=== PATIENT | female | born 1975 | race Caucasian/White ===

== ENCOUNTER → 2017-06-25 | Outpatient (CLI) | payer MEDICAID ==
[~2017-06-25] MED LIST: AMITRIPTYLINE100 M1 PO; AMLODIPINE BESY10 M1 PO; ASPIRIN 81MG TA81 MG PO; ATIVAN1 MG PO; CLONIDINE 0.2M0.2 MG PO; DIAZEPAM2 M1 PO; DICLOFENAC 50MG50 MG PO; FIORICET 325 MG1 TAB PO; FIORICET1 CAP PO; GABAPENTIN300 M1 PO; HYDROCODON-ACETAMINO OR; HYDROCODONE1 TABLET PO; LOPRESSOR 50 MG50 MG PO; LORTAB 10/3251 TAB PO; LOSARTAN POTAS100 MG PO; MELOXICAM15 MG PO; METFORMIN 500M500 M1 PO; NORCO 325 MG-51 TAB PO; OXAPROZIN600 MG OR; PERCOGESIC1 TAB PO; SIMVASTATIN40 MG PO; TIZANIDINE HCL 44 MG NG; TRAZODONE50 MG PO; ULTRAM50 MG PO; VALSARTAN80 MG PO; VOLTAREN75 MG PO
[2017-06-25 18:29] LABS: HEMOGLOBIN 11.6 g/dL (12.2-16.2); LYMPH # 2.3 K/mm3 (0.7-4.5); LYMPH % 35.2 % (10-50.0)
[2017-06-25 18:54] LABS: BUN 17 mg/dL (7-18)
[2017-06-25 18:55] LABS: GFR (ESTIMATED) 61 ML/MIN (59-)
== END ==
LOC: LAB 17:54
PROVIDERS: Nurse Practitioner Family
DX: R53.83 Other fatigue (principal)

== ENCOUNTER 2017-09-16 19:00 | Emergency (ER) | payer MEDICAID ==
[~2017-09-16] VITALS: Ht 170.2 cm; Wt 113.4 kg
--- OUTSIDE RECORDS SUMMARY | 2017-09-16 19:25 | External Medical Summary Rpt ---
Author Author ALEJANDRO Granados, [employer] Organization [employer] Address Unknown Phone Unavailable
--- OUTSIDE RECORDS SUMMARY | 2017-09-16 19:25 | External Medical Summary Rpt | CCD ---
Demographics Preferred Language Iraqi Marital Status Unknown Tenriism Affiliation Unknown Race Unknown Ethnic Group Unknown Author Author , ALEJANDRO ALLEN Address Unknown Phone Immunization Unable to retrieve immunization data due to connection failure with Immunization Registry. Please try again later.
--- OUTSIDE RECORDS SUMMARY | 2017-09-16 19:25 | External Medical Summary Rpt | CCD ---
Author Author ALEJANDRO Address Unknown Phone [email or web address] Purpose Continuity of Care Document - through 2016
--- OUTSIDE RECORDS SUMMARY | 2017-09-16 19:25 | External Medical Summary Rpt | CCD ---
Demographics Preferred Language Citizen Of [place] Marital Status Unknown Anabaptist Affiliation Unknown Race Unknown Ethnic Group Unknown Author Author , ALEJANDRO ALLEN Address Unknown Phone Immunization Unable to retrieve immunization data due to connection failure with Immunization Registry. Please try again later.
--- OUTSIDE RECORDS SUMMARY | 2017-09-16 19:25 | External Medical Summary Rpt | CCD ---
Author Author ALEJANDRO Address Unknown Phone Purpose Continuity of Care Document - through 2016
[2017-09-16] MEDS ORDERED: KEFLEX 500MG.500 MG PO (20:18)
--- NOTE | 2017-09-16 20:19 | Urgent Treatment Center Report ---
History of Present Issue Date/Time Seen by Provider 09/16/172003 Visit Reason Pt arrived:Walked Presenting Problem:PT STATES HER BOG TOE ON HER RIGHT FOOT IS INFECTED Location if Accident: Onset of symptoms date/time:/ or onset unknown for:MEDICAL HX UNKNOWN Have you (or family members/close friends) recently traveled outside the [place]? N If Yes, where/when: Have you had exposure to infectious disease within the past month? TB? Other? Specify: Patient states that she noticed that her left great toe had some redness around her toe nail States that it was a little swollen yesterday and began hurting last night State that she looked at it and it looked a little red and looked swollen and infected State that she knew she needed to come in and get on antibiotics before it got real bad ALLERGIES Coded Allergies: Sulfa (Sulfonamide Antibiotics) (Mild, 03/15/17) sumatriptan (From IMITREX) (Mild, 03/15/17) ketorolac (From TORADOL) (03/15/17) tramadol (03/15/17) Uncoded Allergies: STEROIDS (Mild, 01/11/14) Home Medications Reported Medications ASPIRIN (Aspirin) 81 MG PO DAILY TIZANIDINE HCL (Tizanidine Hcl 4 Mg Tablet) 4 MG NG QID Dfkejsbdqdyay-Dreq-Jysudwwmxh (Fioricet ([id number])) 1-2 TAB PO Q6HP PRN MIGRAINE Gabapentin 600 MG PO DAILY #90 Diazepam 2 MG PO DAILY #45 Metformin HCl (Metformin) 500 MG PO BID #90 Valsartan 80 MG PO DAILY #30 Oxaprozin 600 MG OR TID PRN anti-inflammatory #60 Trazodone Hcl (Trazodone HCl) 50 MG PO NIGHTLY #30 Metoprolol Tartrate (Lopressor) 50 MG PO BID #60 Simvastatin (Simvastatin 40MG Tab) 40 MG PO DAILY #30 History Medical History General CAD? No Angina: No [place]: No Hypertension? Yes Hyperlipidemia? No CHF? No COPD? No Asthma? No Anemia? Yes Hernia? No Thyroid Problems? No Hypothyroidism? No CVA? No Seizures? No Diabetes? Yes Insulin Dependent: No Insulin Pump: No Home FSBS? No UTI? No Stones? No GB Disease: No Nephritic Syndrome? No Asplenia? No Hepatitis? No Sickle Cell Disease? No Arthritis? Yes Cataracts? No Glaucoma? No MRSA? No TB? No Cancer? No Immunization HX DT/Tetanus Unknown Surgical Hx Previous Surgery?Y HYSTERECTOMY TUBAL EXPLORATORY LAP ABD TONSILECTOMY partial knee replacement Social History Smoking Hx Smoker: Current Every Day Smoker Tobacco: Yes Type Cigarettes Alcohol Alcohol: No Review of Systems All Other Systems Reviewed and Negative Physical Exam Vital Signs Vital Signs Date Time Temp Pulse Resp B/P Pulse O2 O2 Flow FiO2 Ox Delivery Rate 09/16 1906 97.8 106 20 184/134 97 General Appearance normal appearance, WD/WN, no apparent distress Respiratory Status Yes: trachea midline, chest symmetrical, non tender chest. No: respiratory distress. Lung Sounds bilateral: normal breath sounds, lungs clear. Cardiovascular normal exam, regular rate/rhythm, no peripheral edema Extremities Mild redness around left great toe, no streaks, no warmth, no drainage Neurologic alert, normal exam, oriented x 3 Medical Decision Making LABS/Meds/Orders Pt receiving controlled substance in ED? No Progress [facility] Progress Notes Comment Call and make appointment with Dr Abdi as discussed in office today and take antibiotics as prescribed Departure Departure Time of Disposition 2011 Disposition DC Home or Self Care(routine) Clinical Impression Primary Impression: Toe infection Secondary Impressions: Paronychia Condition STABLE Referrals BLANCA JUAREZ (Family): 3 Days-Call Office Or sooner if worsening of symptoms, streaks fever or further pain/complications MERCEDES ABDI DPM Patient Instructions DI for Paronychia, Paronychia Additional Instructions Paronychia ( hangnail infection) 1. Soak the infected area in warm water once or twice a day for 20 minutes. 2. After your initial soak, cut the hangnail off. ... 3. Rub vitamin E oil or cream on the affected area to prevent another hangnail. 4. Use a topical antibiotic cream on the infected hangnail for a few days Apply topical antibiotic cream to area of nail/skin after soaking foot in warm epson salt water Follow up with family doctor Make appointment with Dr Abdi as instructed in the office today If you began to see red streaks, fever or worsening of infection go straight to ER Discharge Counseling Counseled pt/family regarding diagnosis, test results Prescriptions Current Visit Scripts CEPHALEXIN (Keflex 500MG Capsule) 500 MG PO QID #40 CAP at 202
[2017-09-16 20:20] VITALS: BP 184/134
== END 2017-09-16 20:20 | disposition home or self-care (01) ==
LOC: UTC 19:00
DX: L03.032 Cellulitis of left toe (principal); Z88.2 Allergy status to sulfonamides; Z88.6 Allergy status to analgesic agent; E11.9 Type 2 diabetes mellitus without complications; Z79.84 Long term (current) use of oral hypoglycemic drugs; I10 Essential (primary) hypertension; Z79.82 Long term (current) use of aspirin; D64.9 Anemia, unspecified; F17.210 Nicotine dependence, cigarettes, uncomplicated